=== PATIENT | male | born 1985 | race Caucasian/White ===

== ENCOUNTER 2018-08-26 12:36 | Emergency (ER) | payer OTHER ==
[~2018-08-26] VITALS: Ht 190.5 cm; Wt 124.7 kg
[2018-08-26 12:45] VITALS: BP 126/69
--- NOTE | 2018-08-26 12:45 | NUR ---
PATIENT AMB. TO BED #11
[2018-08-26] MEDS ORDERED: LIDOCAINE 1% 500 MG/50 ML VIAL INJ SCH (12:55)
[2018-08-26] MEDS ORDERED: LIDOCAINE MPF 1% 5mL VIAL ONE (13:12)
[2018-08-26] MEDS ORDERED: NEOMYCIN/POLYMYXIN/BACITRACIN 0.9 GM/1 PKT TP ONE (13:13)
--- NOTE | 2018-08-26 13:23 | NUR ---
PATIENT PRESENTS TO ED WITH broke glass last night , 3 inch vertical laceration 5th digit side last tetanus immunization about 5yrs ago as per pt +2 radial pulse <3 sec cap refill . DENIES N/V/D; SKIN IS PINK/WARM/DRY; AAOX4 WITH EVEN AND STEADY GAIT; LUNGS CLEAR BL; HR EVEN AND REGULAR; PT DENIES ANY FEVER, CP, SOB, OR COUGH AT THIS TIME; PATIENT STATES PAIN OF 5/10 AT THIS TIME; VSS; PATIENT POSITIONED FOR COMFORT; HOB ELEVATED; BEDRAILS UP X2; BED DOWN. ER MD MADE AWARE OF PT STATUS.
--- NOTE | 2018-08-26 13:23 | NUR ---
laceration has been cleaned with betadine/sterile water
--- NOTE | 2018-08-26 13:27 | NUR ---
Patient being evaluated by physician at bedside.
[2018-08-26] MEDS ORDERED: LIDOCAINE 2% 1000 MG/50 ML VIAL INJ ONE (13:40)
--- NOTE | 2018-08-26 14:05 | NUR ---
D/C INSTRUCTIONS AND RX GIVEN TO PT BY LACERATION REPAIRED AND DRESSING APPLIED Patient discharged with v/s stable. Written and verbal after care instructions given and explained. Patient alert, oriented and verbalized understanding of instructions. Ambulatory with steady gait. All questions addressed prior to discharge. ID band removed. Patient advised to follow up with PMD. Rx NAPROSYN/KEFLEX of given. Patient educated on indication of medication including possible reaction and side effects. Opportunity to ask questions provided and answered.
[2018-08-26 14:07] VITALS: BP 134/78
== END 2018-08-26 14:09 | disposition home or self-care (01) ==
LOC: MED 12:36
DX: S61.412A Laceration without foreign body of left hand, initial encounter (principal); W20.8XXA Other cause of strike by thrown, projected or falling object, initial encounter; Y93.89 Activity, other specified; Y92.89 Other specified places as the place of occurrence of the external cause; Y99.8 Other external cause status
CPT/HCPCS: 12004; 99283; J2001